=== PATIENT | female | born 1985 | race Caucasian/White ===

== ENCOUNTER 2020-02-02 23:15 | Inpatient (IN) ==
[~2020-02-02 23:15] MED LIST: *HR* FentaNYL (PF) 100 MCG/2 ML VIAL IVP PRN; Azithromycin 500 MG in 0.9 % Sodium Chloride 250 ML IVPB ONE; EPHEDrine 50 MG/ML VIAL IVP PRN; Epidural Premix (fent/bupiv) 110 ML EP ONE; Epidural Premix (fent/bupiv) 110 ML EP SCH; Famotidine 20 MG/2 ML VIAL IVP PRN; Lidocaine 1% 20 ML MDV INFILT PRN; Metoclopramide 10 MG/2 ML VIAL IVP PRN; Naloxone 0.4 MG/ML INJ IVP PRN; Ondansetron 4 MG/2 ML VIAL IVP PRN; Penicillin G Potassium 5,000,000 UNIT in 0.9 % Sodium Chloride Mini Bag 100 ML IVPB ONE; Ringers Solution, Lactated 1,000 ML ONE; Ropivacaine/PF 0.2% 20 ML VIAL ONE
[2020-02-02 23:19] LABS: Basophils % 0.2 %; Eosinophils % 0.3 %; Hematocrit 37.6 % (35.3-44.9); Hemoglobin 12.7 g/dL (11.5-15.4); Immature Granulocytes % 1.1 % (0-4); Lymphocytes # 1.7 K/mcL (0.6-4.6); Lymphocytes % 12.4 %; Mean Corpuscular HGB Conc 33.8 g/dL (31.6-35.5); Mean Corpuscular Volume 97.7 fL (83.0-100.0); Mean Platelet Volume 10.1 fL (9.4-12.4); Neutrophils # 10.8 K/mcL (1.6-8.9); Platelet Count 234 K/mcL (140-400); Red Blood Count 3.85 M/mcL (3.82-4.97); Red Cell Distribution Width 12.9 % (11.5-14.5); White Blood Count 13.7 K/mcL (4.3-11.1)
[2020-02-02 23:28] LABS: Amphetamine Screen,Urine Negative ng/mL (Cutoff=1000); Barbiturate Screen,Urine Negative ng/mL (Cutoff=200); Benzodiazepines Screen,Urine Negative ng/mL (Cutoff=200); Cannabinoid Screen,Urine Negative ng/mL (Cutoff = 50); Cocaine Screen,Urine Negative ng/mL (Cutoff= 300); Opiate Screen,Urine Negative ng/mL (Cutoff=300); Phencyclidine Screen,Urine Negative ng/mL (Cutoff=25)
[2020-02-02] MEDS ORDERED: Oxytocin 20 units/ LR 1000 mL 20 UNIT/1,000 ML BAG IVC ONE (23:46)
[2020-02-02 23:56] LABS: Varicella Zoster IgG Antibody Positive
[2020-02-02 23:57] LABS: Rubella IgG Antibody POSITIVE (POSITIVE)
[2020-02-03] MEDS: Ringers Solution, Lactated 1,000 ML IVC SCH ×2 (01:01→01:04)
[2020-02-03] MEDS ORDERED: Oxytocin 20 units/ LR 1000 mL 20 UNIT/1,000 ML BAG IVC ONE (02:06)
[2020-02-03] MEDS ORDERED: Oxytocin 20 units/ LR 1000 mL 20 UNIT/1,000 ML BAG IVC SCH (02:33)
[2020-02-03] MEDS ORDERED: Measles/Mumps/Rubella Vacc 0.5 ML VIAL SQ PRN (02:33)
[2020-02-03] MEDS ORDERED: Benzocaine/Menthol 56 GM AEROSOL SPRAY TP PRN (02:33)
[2020-02-03] MEDS ORDERED: Acetaminophen 325 MG TABLET PO PRN (02:33)
[2020-02-03] MEDS: Ibuprofen 600 MG TABLET PO PRN ×3 (02:57→20:06)
[2020-02-03] MEDS ORDERED: Penicillin G Potassium 2,500,000 UNIT/105 ML UNIT IVPB SCH (03:00)
[2020-02-03 04:28] LABS: Hepatitis B Surface Antigen Nonreactive (Nonreactive)
[2020-02-03 04:56] LABS: HIV-1&2 Antibody & p24 Ag Nonreactive (Nonreactive)
[2020-02-03 06:29] LABS: Basophils % 0.2 %; Eosinophils # 0.1 K/mcL (0.0-0.6); Eosinophils % 0.4 %; Hematocrit 32.7 % (35.3-44.9); Immature Granulocytes % 0.7 % (0-4); Lymphocytes # 2.1 K/mcL (0.6-4.6); Mean Corpuscular HGB Conc 33.6 g/dL (31.6-35.5); Mean Corpuscular Hemoglobin 32.9 pg (28.0-33.3); Mean Corpuscular Volume 97.9 fL (83.0-100.0); Monocytes # 1.1 K/mcL (0.0-1.3); Monocytes % 7.3 %; Neutrophils # 11.5 K/mcL (1.6-8.9); Platelet Count 212 K/mcL (140-400); Red Blood Count 3.34 M/mcL (3.82-4.97); Red Cell Distribution Width 12.9 % (11.5-14.5); Segmented Neutrophils % 77.4 %; White Blood Count 14.9 K/mcL (4.3-11.1)
[2020-02-03] MEDS: Prenatal Vit/FA 1 EACH TABLET PO SCH (07:41)
[2020-02-04] MEDS: Ibuprofen 600 MG TABLET PO PRN (07:50)
[2020-02-04] MEDS: Prenatal Vit/FA 1 EACH TABLET PO SCH (07:50)
[2020-02-04 08:04] VITALS: BP 119/82
[2020-02-04] MEDS ORDERED: Etonogestrel 68 MG IMPLANT IL ONE (09:57)
[2020-02-04] MEDS ORDERED: Lidocaine 1% 20 ML MDV ID ONE (09:57)
== END 2020-02-04 11:21 | disposition home or self-care (01) | DRG 807 ==
LOC: 1NENULAB → 1NENUOBS 02-03 02:33
PROVIDERS: ADMIT Obstetrics & Gynecology; ATTEND Obstetrics & Gynecology